=== PATIENT | female | born 1940 | race Two or more races ===

== ENCOUNTER 2019-01-28 08:55 | Day surgery (SDC) | payer MEDICARE, BC ==
[2019-01-23 15:50] VITALS: BMI 32.5
--- NOTE | 2019-01-27 17:11 | HP ---
HISTORY AND PHYSICAL DATE OF SURGERY: 01/28/2019 Karey Armstrong is a 78-year-old patient seen with progressive right shoulder pain. After treatment options were discussed with her, she elected to proceed with right shoulder arthroscopy. Consent regarding the procedure was obtained. Preoperative medical clearance was provided. PAST MEDICAL HISTORY: Hypothyroidism. PAST SURGICAL HISTORY: 1. Breast biopsy. 2. Bilateral total hip arthroplasty. 3. Cataract surgery. DAILY MEDICATIONS: 1. Fenofibrate. 2. Levothyroxine. 3. Oxybutynin. 4. Allopurinol. ALLERGIES: SOCIAL HISTORY: She denies current tobacco use. PHYSICAL EVALUATION OF RIGHT SHOULDER: Flexion is 140 degrees, abduction 110 degrees, external rotation 30 degrees with weakness. Tenderness is noted along the anterolateral acromion and acromioclavicular joint areas. Impingement is positive 90 degrees. Drop-arm sign is positive. Distal neurovascular exam is intact. RADIOGRAPHS: Radiographs of the right shoulder revealed a type 2 anterior acromion, evidence for acromioclavicular joint osteoarthritis. Right shoulder MRI revealed a partial rotator cuff tear. IMPRESSION: 1. Right shoulder impingement with rotator cuff tear. 2. Right shoulder acromioclavicular joint osteoarthritis. 3. Hypothyroidism. PLAN: Right shoulder arthroscopy with subacromial decompression, possible arthroscopic rotator cuff repair, possible Ying procedure and debridement. MMODL / IJN: [id number] /
[~2019-01-28 08:55] MED LIST: DEXAMETHASONE SOD PHOSPHATE 10 MG/ML 1 ML VIAL IV ONE; LACTATED RINGERS 1,000 ML IV SCH; LIDOCAINE 1% 20 ML VIAL (10MG/ML) FOR IV START INTRADERMA PRN; MIDAZOLAM 2 MG/2 ML VIAL IV PRN; fentaNYL (PF) 50 MCG/ML 2 ML AMP IV PRN; fentaNYL (PF) 50 MCG/ML 2 ML AMP IVP PRN
[2019-01-28] MEDS: ONDANSETRON 4 MG/2 ML VIAL IVP ONE ×2 (10:05→12:44)
--- NOTE | 2019-01-28 10:31 | P.ANPRN ---
Procedure Note - Anesthesia - Nerve Block Performed Right Interscalene Single Time Out Performed: Yes Date of Procedure: 01/28/19 Procedure Start Time: 09:49 Procedure Stop Time: 09:53 Location of Patient Procedure: PreOp Indication: Acute Post-Operative Pain, Analgesia, Requested by Surgeon Sedation Type: Sedate with meaningful contact maintained Preparation: Sterile Prep Position: Supine Catheter: None Needle Types: Pajunk Needle Gauge: 21 Ultrasound used to visualize needle placement: Yes Ultrasound used to observe medication spread: Yes Injectate: 0.5% Ropivacaine (see comment for volume) (with 4mg dexamethasone) Blood Aspirated: No Pain Paresthesia on Injection Noted: No Resistance on Injection: Normal Image Stored and Saved: Yes Events: Uneventful and Well Tolerated
[2019-01-28] MEDS ORDERED: ROPIVACAINE 5 MG/ML 30 ML VIAL ONE (10:41)
[2019-01-28] MEDS ORDERED: MIDAZOLAM 2 MG/2 ML VIAL ONE (10:41)
[2019-01-28] MEDS ORDERED: PHENYLEPHRINE-0.9% NACL SYG 1 MG/10 ML SYRINGE ONE (10:41)
[2019-01-28] MEDS ORDERED: SUCCINYLCHOLINE CHLORIDE 100 MG/5 ML SYR IV ONE (10:41)
[2019-01-28] MEDS ORDERED: fentaNYL (PF) 50 MCG/ML 2 ML AMP ONE (10:41)
[2019-01-28] MEDS ORDERED: LIDOCAINE 1% INJ 10MG/ML (20 ML MDV) ONE (10:41)
[2019-01-28] MEDS ORDERED: DEXAMETHASONE SOD PHOSPHATE 4 MG/ML 1 ML VIAL ONE (10:41)
[2019-01-28] MEDS ORDERED: PROPOFOL 10 MG/ML 20 ML VIAL IV ONE (10:41)
[2019-01-28] MEDS ORDERED: LACTATED RINGERS 1,000 ML IV ONE (11:52)
[2019-01-28 12:15] VITALS: TEMP 97.4
--- NOTE | 2019-01-28 12:19 | P.OP ---
Date of Procedure: 01/28/19 Preoperative Diagnosis: Right shoulder impingement Postoperative Diagnosis: 1. Right shoulder rotator cuff tear 2. Right shoulder impingement 3. Right shoulder acromioclavicular joint osteoarthritis 4. Right shoulder partial long head biceps tendon tear 5. Right shoulder superficial labral tear 6. 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 Right shoulder arthroscopic rotator cuff repair 2. Right shoulder arthroscopic subacromial decompression 3. Right shoulder arthroscopic Ying procedure 4. Right shoulder arthroscopic debridement labral tear 5. Right shoulder arthroscopic biceps tenotomy Implants: 1Arthrex 4.75 swivel lock anchor Anesthesia: GETA, regional (Interscalene block) Surgeon: Christopher Gtz [employer] Plan Coordinator #1: Efren Haynes Estimated Blood Loss (ml): 7 Pathology: none sent Condition: stable Disposition: PACU Indications for Procedure: 78 -year-old patient seen with progressive right shoulder pain. After having treatment options discussed, she elected to proceed with arthroscopy. Operative Findings: See description of procedure Description of Procedure: Patient underwent an interscalene block by department of anesthesia. The patient was then taken to the operative suite. The patient underwent a general anesthetic by the department of anesthesia. The patient was placed into a lateral position and secured. There was appropriate padding of the bony prominence. Right shoulder was then prepped and draped in normal sterile orthopedic fashion. We placed the extremity in 10 pounds of longitudinal traction. A posterior incision was now made for a posterior working portal site. The trocar and cannula were inserted into the glenohumeral joint. Arthroscopy was initiated. Spinal needle was now inserted anteriorly, to ascertain the anterior working portal site. An incision was now made in that area, a trocar was inserted followed by a probe. There were grade 3/4 chondromalacia changes of both the humeral head and glenoid. No osteochondral tears were present. There was some superficial tearing of the superior labrum. There was partial tearing and hyperemia long head biceps tendon. There was a rotator cuff check and visualized from glenohumeral side. I performed an arthroscopic biceps tenotomy. I debrided the superficial labral tear down to stable labral tissue. The residual labrum was probed and found to be stable. Instruments now removed from glenohumeral joint. Utilizing the posterior working portal site, the trocar and cannula were inserted into the subacromial space. Arthroscopy initiated. I made an incision 2 fingerbreadths lateral to the acromion. I introduced my trocar followed by my ArthroCare ablator. I now began ablating thick subacromial bursal tissue, which exposed the undersurface of the anterior acromion. There was diminished subacromial space. There was a very prominent anterior acromion. A motorized bur was introduced and a subacromial decompression was performed. I also excised some osteophytes off the inferior aspect of the distal clavicle. The AC joint was visualized and noted to be fairly arthritic. The motorized bur was intro duced in the anterior portal site and a Ying procedure was performed without difficulty, decompressing the AC joint nicely. I turned my attention to the rotator cuff. There was a 1.5 cm rotator cuff tear. I debrided the margins getting that down to stable tendon tissue. I now passed 3 everted mattress sutures through good bites of rotator cuff tendon with the assistance of Storm PINA. I abraded the footprint with a motorized bur. A placed a hole at the footprint for insertion of an anchor. All suture limbs were passed through the eyelet of a 4.75 Arthrex swivel lock anchor. We now placed the eyelet into our pre-punch hole and I held the anchor in position while Storm PINA tensioned the sutures and introduced the anchor with good fixation noted. All residual suture limbs were now clipped. We had good compression of the tendon along the entire footprint. I injected 1 mL Renyte intra-articular. Instruments now removed from the portal sites. All portal sites were appro ximated with nylon suture. Sterile dressings were applied followed by a shoulder sling. Efren PINA assisted in this complex case. The patient was awakened, transferred to a bed, and taken to recovery in stable condition.
[2019-01-28] MEDS ORDERED: METOCLOPRAMIDE 5 MG/ML 2 ML VIAL IVP ONE (12:53)
[2019-01-28] MEDS ORDERED: HYDROmorphone 1 MG/ML 1 ML SYRINGE IVP ONE (12:57)
[2019-01-28 15:03] VITALS: RESP 18
[2019-01-28 15:04] VITALS: BP 146/73; PULSE 79
== END 2019-01-28 14:40 | disposition home or self-care (01) ==
LOC: OR 08:55
PROVIDERS: ATTEND Orthopaedic Surgery
DX: M75.111 Incomplete rotator cuff tear or rupture of right shoulder, not specified as traumatic (principal); M19.011 Primary osteoarthritis, right shoulder; M25.711 Osteophyte, right shoulder; M94.211 Chondromalacia, right shoulder; S46.111A Strain of muscle, fascia and tendon of long head of biceps, right arm, initial encounter; S43.431A Superior glenoid labrum lesion of right shoulder, initial encounter; E03.9 Hypothyroidism, unspecified; E78.5 Hyperlipidemia, unspecified; E66.9 Obesity, unspecified; Z79.890 Hormone replacement therapy; Z79.899 Other long term (current) drug therapy; Z88.8 Allergy status to other drugs, medicaments and biological substances; Z96.643 Presence of artificial hip joint, bilateral; Z98.49 Cataract extraction status, unspecified eye; Z98.890 Other specified postprocedural states; X58.XXXA Exposure to other specified factors, initial encounter; Z68.32 Body mass index [BMI] 32.0-32.9, adult
CPT/HCPCS: 64415; 76942; 29824; 29826; 29827; C1765; J2250; J1100 ×2; J2765; J0690; J2405; J2001; J3010; J1170; J2795; J2370; J0330; J2704